=== PATIENT | male | born 1970 | race Caucasian/White ===

== ENCOUNTER 2024-04-04 01:17 | Observation (INO) | payer SELFPAY ==
[2024-04-04] VITALS (22 sets, daily range): BP systolic 129–202; BP diastolic 71–105
[~2024-04-04] VITALS: Ht 182.9 cm; Wt 182.5 kg
--- NOTE | 2024-04-04 01:20 | NUR ---
PT TO RM 12 FOR TRIAGE
--- NOTE | 2024-04-04 01:20 | NUR ---
EKG DONE. DR. TO BEDSIDE. CONNECTED TO EQUIP
[2024-04-04] MEDS ORDERED: Pantoprazole Sodium 40 MG VIAL (Protonix) IV ONE (01:40)
[2024-04-04] MEDS ORDERED: ASPIRIN 81 MG/TAB PO ONE (01:40)
[2024-04-04 01:59] LABS: BASO% 0.4 % (0-3); EOS% 3.3 % (0-8); HEMATOCRIT 36.9 % (39.0-50.0); HEMOGLOBIN 12.2 g/dl (14.0-18.0); IMMATURE GRANULOCYTES 0.3 % (0.0-5.0); LYMPH% 17.5 % (15-41); MEAN CELL VOLUME 83.9 fL CALC (80.0-100.0); MEAN CORPUSCULAR HGB 27.7 pG CALC (26.0-32.0); MEAN CORPUSCULAR HGB CONC 33.1 g/dL CAL (32.0-36.0); MONO% 7.4 % (2-13); NEUT# 4.98 thou/uL (1.82-7.42); NEUT% 71.1 % (42-76); RED BLOOD COUNT 4.4 mill/uL (4.70-6.10); RED CELL DISTRI WIDTH 14.4 % (11.5-15.5)
[2024-04-04 02:17] LABS: ALKALINE PHOSPHATASE 106 u/l (38-126); ANION GAP 12 (6-22 (CALC)); BILIRUBIN, TOTAL 0.4 mg/dL (0.2-1.3); BUN 21 mg/dL (9-20); BUN/CREATININE RATIO 26 (12-20 (CALC)); CARBON DIOXIDE 23 mmol/l (22-30); CHLORIDE 106 mmol/l (95-108); CPK 309 u/l (55-170); CREATININE 0.8 mg/dL (0.7-1.3); ESTIMATED GFR 107 ML/MIN (>=90 (CALC)); POTASSIUM 3.9 mmol/l (3.5-5.1); SGOT/AST 54 u/l (17-59); SODIUM 137 mmol/l (137-146); TOTAL PROTEIN 7.4 g/dL (6.3-8.2)
[2024-04-04 02:22] LABS: D-DIMER 0.17 mg/L (0.19-0.60)
[2024-04-04 02:26] LABS: ACT PARTIAL THROMBO TIME 29.3 SECONDS (20.0-32.5)
[2024-04-04 02:28] LABS: PROTHROMBIN TIME 10.8 SECONDS (9.0-12.5)
--- NOTE | 2024-04-04 03:15 | NUR ---
PT RESTING. NAD. VSS.
[2024-04-04] MEDS ORDERED: ACETAMINOPHEN 325 MG/TAB PO PRN (04:05)
[2024-04-04] MEDS ORDERED: MAGNESIUM HYDROXIDE 30 ML UDC PO PRN (04:05)
[2024-04-04] MEDS ORDERED: NITROGLYCERIN 0.4 MG/TAB SL PRN (04:05)
--- NOTE | 2024-04-04 04:35 | NUR ---
REPORT TO MICHELL ALARCON /ICU
--- NOTE | 2024-04-04 04:41 | NUR ---
PT UP TO THE BR TO VOID. AWAITING TRANSFER UPSTAIRS.
--- NOTE | 2024-04-04 05:30 | NUR ---
PT UP TO BR. PHONE CHARGED AT DESK. TO CAR TO GET PT'S LAPTOP. PT RESTING. NAD. VSS. TO FLOOR VIA W/C WITH MONITER. AMBULATORY TO BED. SR
--- NOTE | 2024-04-04 05:30 | NUR ---
PT ARRIVED TO FLOOR @0530 AND BEDSIDE SHIFT REPORT WAS GIVEN BY MICHELL ALAMO.
[2024-04-04] MEDS ORDERED: DEXTROSE 250 ML IV PRN (06:30)
[2024-04-04] MEDS ORDERED: GLIPIZIDE ER10 M1 PO (06:38)
[2024-04-04] MEDS ORDERED: FENOFIBRATE145 MG PO (06:38)
[2024-04-04] MEDS ORDERED: PIOGLITAZONE HC45 MG PO (06:39)
[2024-04-04] MEDS ORDERED: LISINOPRIL20 M1 PO (06:39)
[2024-04-04] MEDS ORDERED: JANUVIA100 MG PO (06:39)
[2024-04-04] MEDS ORDERED: GABAPENTIN100 MG PO (06:40)
[2024-04-04] MEDS ORDERED: METHOCARBAMOL500 MG PO ×2 (06:42→13:06)
[2024-04-04] MEDS ORDERED: LASIX 40 MG TAB40 MG PO (06:43)
[2024-04-04] MEDS ORDERED: POTASSIUM CHLO20 MEQ PO (06:43)
[2024-04-04] MEDS ORDERED: MOTRIN800 MG PO (06:44)
[2024-04-04] MEDS ORDERED: INSULIN LISPRO 100 UNITS/ML ML SC SCH (07:00)
[2024-04-04] MEDS ORDERED: CYCLOBENZAPRINE HCL 5 MG TAB PO PRN (07:10)
--- NOTE | 2024-04-04 07:18 | NUR ---
GOT REPORT FROM ACCOUNT EXECUTIVE TRAINEE, PATIENT AWAKE IN BED WATCHING TV; NO COMPLAINTS; ROOM AIR; NO S.S OF DISTRESS; CALL LIGHT WITHIN REACH; BED IN LOWEST POSTION;SAFETY MEASURES IN PLACE
--- NOTE | 2024-04-04 09:03 | NUR ---
glucose was 211, 2 units was given with no issues
--- NOTE | 2024-04-04 10:02 | NUR ---
patient is resting in bed; no s.s of distress at this time; no complaints; iviste clean and intcat saline locked; call light within reach,verbalized understanding on how to use, personal items within reach; bedin lowest postion;saftey measures in place
--- NOTE | 2024-04-04 12:00 | NUR ---
PATIENT IN BED EATING LUNCH; NO COMPLAINTS AT THIS TIME; NO S.S OF DISTRESS; DENIED ANY N/D/V AT THIS TIME; IV SITE CLEAN AND INTCAT SALINE LOCKED AT AT THIS TIMEM; TELE LEADS INTACT AND WORKING WITH NO ISSUES; GLUCOSE WAS 205,2 UNITS WAS GIVEN NO ISSUES; CALL LIGHT WITHIN REACH,VERBALIZED UNDERSTADNING ON HOW TO USE, PERSONAL ITEM WITHIN REACH; BED IN LOWEST POSTION; SAFETY MEASURES IN PLACE
[2024-04-04] MEDS ORDERED: LISINOPRIL 20 MG/TAB PO SCH (14:00)
--- NOTE | 2024-04-04 14:44 | NUR ---
IV site discontinued, cath intact. No edema , no redness, voices no discomfort. Discharge instructions given. Patient verbalizes understanding of same. Discharged in stable condition via Ambulatory to Home with SELF. All belongings sent with pt.
[2024-04-04] MEDS ORDERED: ENOXAPARIN SODIUM 40 MG/0.4 ML SYR SC SCH (21:00)
--- NOTE | 2024-04-10 12:42 | NUR ---
Discharge follow up call completed 04/10/24. Patient states he is doing well and has had no issues since the day of discharge. No medication was prescribed at discharge. Patient has a follow up appointment with his PCP on 04/14/24. No needs or concerns vrbalized at this time.
== END 2024-04-04 14:40 | disposition home or self-care (01) | DRG 313 ==
LOC: ED 01:17 → ED-I 03:52 → ED 04:06 → ICU 04:07
PROVIDERS: Family Medicine; ADMIT Internal Medicine; ATTEND Internal Medicine
DX: R07.9 Chest pain, unspecified (principal); E11.65 Type 2 diabetes mellitus with hyperglycemia; I10 Essential (primary) hypertension; L03.115 Cellulitis of right lower limb; E66.9 Obesity, unspecified; Z87.891 Personal history of nicotine dependence; Z79.84 Long term (current) use of oral hypoglycemic drugs; Z79.85 Long-term (current) use of injectable non-insulin antidiabetic drugs; Z20.822 Contact with and (suspected) exposure to COVID-19
CPT/HCPCS: G0378; J1815; J2470